=== PATIENT | female | born 1970 | race Asian ===

== ENCOUNTER 2024-08-18 12:21 | Emergency (ER) | payer MEDICARE, OTHER ==
[~2024-08-18] VITALS: Ht 152.4 cm; Wt 43.1 kg
[2024-08-18] MEDS ORDERED: LORAZEPAM INJ 2 MG/ML VIAL ONE (12:59)
[2024-08-18 13:00] LABS: BASOPHILS % (AUTO) 1.2 % (0.0-2.0); EOSINOPHILS % (AUTO) 0.7 % (0.0-6.0); HEMATOCRIT 43 % (33-45); HEMOGLOBIN 15.1 g/dL (11.5-14.8); LYMPHOCYTES # (AUTO) 1.3 K/uL (0.8-4.8); MEAN CORPUSCULAR HEMOGLOBIN 31 PG (26.0-33.0); MEAN CORPUSCULAR HGB CONC 35 g/dl (31.0-36.0); MEAN CORPUSCULAR VOLUME 88 fL (82-100); MONOCYTES # (AUTO) 0.3 K/uL (0.1-1.30); NEUTROPHILS # (AUTO) 2.3 K/uL (1.8-8.9); NEUTROPHILS % (AUTO) 58.1 % (43.0-81.0); PLATELET COUNT (AUTO) 326 K/uL (150-450)
[2024-08-18] MEDS: LORAZEPAM INJ 2 MG/ML VIAL IV ONE (13:07)
[2024-08-18] MEDS: IV NS 0.9% 1,000 ML BAG IV ONE (13:07)
[2024-08-18 13:15] LABS: CALCIUM, SERUM 9.8 mg/dL (8.5-10.1); CREATININE 0.6 mg/dL (0.6-1.3); POTASSIUM 3.4 mmol/L (3.5-5.1)
[2024-08-18 13:18] LABS: MAGNESIUM 1.9 mg/dL (1.8-2.4); PHOSPHORUS 1.9 mg/dL (2.5-4.9)
[2024-08-18] MEDS: K PHOS NEUTRAL 250 MG TABLET PO ONE (14:32)
[2024-08-18 14:44] VITALS: BP 139/91; TEMP 98.7; O2SAT 99
== END 2024-08-18 14:44 | disposition home or self-care (01) ==
LOC: ER 12:25
DX: R25.2 Cramp and spasm (principal); R51.9 Headache, unspecified; F41.1 Generalized anxiety disorder; E83.39 Other disorders of phosphorus metabolism; I10 Essential (primary) hypertension; Z65.8 Other specified problems related to psychosocial circumstances
CPT/HCPCS: 36415; 71045-TC; 80048-TC; 83735-TC; 84100-TC; 85025-TC; J2060; J7030